=== PATIENT | female | born 1940 | race Caucasian/White ===

== ENCOUNTER → 2016-05-22 | Outpatient (CLI) | payer MEDICARE, OTHER ==
[~2016-05-22] MED LIST: ACETAMINOPHEN PO; AMBIEN PO; AMBIEN10 MG PO; AMLODIPINE BESYL5 MG PO; ASPIRIN PO; ASPIRIN81 M2 PO; ATIVAN PO; BALANCED B-1001 TA1 PO; BENAZEPRIL HCL10 MG PO; CALCIUM 600+D T1 TA1 PO; CENTRUM SILVER PO; CHROMIUM PO; COQ PO; COQ-10100 MG PO; COQ-10200 MG; FISH OIL 1,0001 CA2 PO; FISH OIL 1,0001 CAP PO; FISH OIL 1,2001 EAC2 PO; FOLIC ACID PO; FOLIC ACID800 MCG PO; GLUCOSAMINE-CH1 EAC4 PO; GLUCOSAMINE/CHONDROI PO; HAIR, SKIN & N1 EAC1 PO; HCTZ PO; HYDROCHLOROTHIA25 MG PO; IBUPROFEN800 MG PO; LOPRESSOR PO; LORAZEPAM1 MG PO; LOTREL 5/10 MG1 CAP PO; MAALOX SUSPENSI30 ML PO; MAGNESIUM400 M1 PO; METOPROLOL TART25 MG PO; MILK THISTLE200 M1 PO; MILK THISTLE500 MG PO; MSM1000 M1 PO; MULTIVITAMIN1 UDCAP PO; NAPROXEN PO; NEXIUM PO; NITROGYLCERIN SUBLINGUAL; OCUVITE TABLET1 TA1 PO; OMEPRAZOLE40 M1 PO; OYSTER CALCIUM500 MG PO; PLAVIX PO; POTASSIUM GLUCO PO; PROBIOTIC1 EAC2 PO; VIT E PO; VITAMIN C W/R1000 M1 PO; VITAMIN D PO; ZOCOR PO; ZOCOR20 MG PO; ZOLOFT PO; ZOLOFT50 MG PO
--- NOTE | ~2016-05-22 | MY11 ---
[facility] A Service of [facility] & [facility] RADIOLOGY TEXT RESULTS PATIENT: SLY YARBROUGH LOCATION: [facility] : 42 UNIT #: [id number] AGE: [address]: Adelina Merino MD SEX: F ORDER DR: [id number] [facility] [address] [facility]. [place], [place] [address] [id number] O MR#: [id number] Acc #: [id number] NAME: SLY YARBROUGH : 1940 SEX: F STUDY DATE/TIME: 05/22/2016 13:48 UNIT: [facility] ROOM: STUDY DESCRIPTION: MY Mammogram Screening Dig Aman Attending Physician: Adelina Merino M.D. Ordering Physician: Adelina Merino M.D. Primary Care Physician: Adelina Merino M.D. MEDICAL IMAGING REPORT This report is preliminary unless electronic signature is present EXAM Digital screening mammogram, 05/22/2016 HISTORY 75-year-old woman no risk elevation. Annual screening. COMPARISON 09/26/2010, 10/30/2011 FINDINGS Digital imaging of each breast was completed utilizing screening protocol. Review includes FDA-approved CAD device. Breast parenchyma is extremely dense and somewhat heterogeneous with generalized nodular pattern in each breast. There are scattered calcifications with benign characteristics bilaterally. Subareolar duct prominence is noted in each breast. I see no suspicious microcalcifications. There is a subtle focal parenchymal opacity with suggested stellate distortion noted in the upper right breast middle third. This is visualized on the MLO view only and probably represents summation artifact. It will require additional imaging however to include a true lateral projection, exaggerated craniocaudal view and spot compression views. Targeted ultrasound will be performed if indicated at the time. IMPRESSION Incomplete mammographic evaluation. Additional right breast imaging is recommended. See full report with recommendations. Patients over the age of 40 are entered into a reminder system with target due date for the next mammogram. A result letter will also be sent to the patient. BIRADS 0 Incomplete: Need Additional Imaging Evaluation and/or Prior Mammograms for Comparison [facility] A Service of [facility] RADIOLOGY TEXT RESULTS PATIENT: SLY YARBROUGH LOCATION: [facility] : 42 UNIT #: [id number] AGE: [address]: Aedlina Merino MD SEX: F ORDER DR: Dictated by... Norberto Potter M.D. THIS IS AN ELECTRONICALLY VERIFIED REPORT Norberto Potter M.D. at 05/22/2016 3:40 PM Eva TD: 05/22/2016 15:37 JOB #: [id number] MEDICAL IMAGING REPORT Page 1 of 1 COPY
== END | disposition home or self-care (01) ==
LOC: CWCC 13:22
DX: Z12.31 Encounter for screening mammogram for malignant neoplasm of breast (principal); R92.8 Other abnormal and inconclusive findings on diagnostic imaging of breast
CPT/HCPCS: G0202

== ENCOUNTER → 2016-06-06 | Outpatient (CLI) | payer MEDICARE, OTHER ==
--- NOTE | ~2016-06-06 | US24 ---
[facility] A Service of [facility] & [facility] RADIOLOGY TEXT RESULTS PATIENT: SLY YARBROUGH LOCATION: [facility] : 42 UNIT #: [id number] AGE: [address]: Adelina Merino MD SEX: F ORDER DR: [id number] [facility] [address] [facility]. [place], [place] [address] [id number] O MR#: [id number] Acc #: [id number] NAME: SLY YARBROUGH : 1940 SEX: F STUDY DATE/TIME: 06/06/2016 14:41 UNIT: [facility] ROOM: STUDY DESCRIPTION: US Breast Unilateral Attending Physician: Adelina Merino M.D. Referring Physician: Adelina Merino M.D. Ordering Physician: Adelina Merino M.D. Primary Care Physician: Adelina Merino M.D. MEDICAL IMAGING REPORT This report is preliminary unless electronic signature is present EXAM Right breast ultrasound. INDICATION Abnormal screening mammogram. FINDINGS Please refer to the diagnostic mammogram report for details on the ultrasound. IMPRESSION Benign right breast ultrasound. Patients over the age of 40 are entered into a reminder system with target due date for the next mammogram. A result letter will also be sent to the patient. BIRADS: 2 Benign finding. Dictated by... Jasper Barcenas M.D. THIS IS AN ELECTRONICALLY VERIFIED REPORT Jasper Barcenas M.D. at 06/06/2016 4:14 PM JESUS/benjamín TD: 06/06/2016 16:10 JOB #: [id number] MEDICAL IMAGING REPORT Page 1 of 1 COPY
--- NOTE | ~2016-06-06 | MY8 ---
[facility] A Service of [facility] RADIOLOGY TEXT RESULTS PATIENT: SLY YARBROUGH LOCATION: [facility] : 42 UNIT #: [id number] AGE: [address]: Adelina Merino MD SEX: F ORDER DR: [id number] [place] [id number] [facility]. [place], [place] [address] [id number] O MR#: [id number] Acc #: [id number] NAME: SLY YARBROUGH : 1940 SEX: F STUDY DATE/TIME: 06/06/2016 14:18 UNIT: [facility] ROOM: STUDY DESCRIPTION: MY Mammogram Dx Dig Rt Attending Physician: Adelina Merino M.D. Referring Physician: Adelina Merino M.D. Ordering Physician: Adelina Merino M.D. Primary Care Physician: Adelina Merino M.D. MEDICAL IMAGING REPORT This report is preliminary unless electronic signature is present EXAM 1. Right digital diagnostic mammogram with CAD 2. Diagnostic right breast ultrasound, 06/06/2016. HISTORY 75-year-old asymptomatic female returns due to abnormal screening mammogram. FINDINGS RIGHT BREAST MAMMOGRAM: Spot compression MLO, ML and exaggerated CC views of the right breast were obtained. Background breast parenchyma consists of heterogenously dense tissue. The focal asymmetry in the right MLO projection resolves with spot compression images. There are some benign calcifications in both breasts. COMPARISON STUDIES Exam is compared to prior mammograms dated 05/22/2016, 10/30/2011, and 09/26/2010. Given the abnormality on the screening mammogram, diagnostic right breast ultrasound was performed. RIGHT BREAST ULTRASOUND: Charles-scale and color Doppler ultrasound of the right breast was performed with attention to the superior 1 half of the right breast. There is no suspicious mass or findings identified. No evidence of malignancy. There is a small 0.5 cm morphologically normal lymph node at 10 o'clock position, approximately 7 cm from nipple. IMPRESSION Benign right breast mammogram and right breast ultrasound. BIRADS II. [facility] A Service of [facility] & [facility] RADIOLOGY TEXT RESULTS PATIENT: SLY YARBROUGH LOCATION: [facility] #: [id number] : 42 UNIT #: [id number] AGE: [address]: Adelina Merino MD SEX: F ORDER DR: RECOMMENDATIONS: Annual screening mammogram. Results of this study as well as recommendations were discussed directly with the patient at the time of her visit to the department of Radiology. Patients over the age of 40 are entered into a reminder system with target due date for the next mammogram. A result letter will also be sent to the patient. BIRADS: 2 - Benign finding Dictated by... Jasper Barcenas M.D. THIS IS AN ELECTRONICALLY VERIFIED REPORT Jasper Barcenas M.D. at 06/06/2016 4:14 PM JESUS/shara TD: 06/06/2016 16:05 JOB #: [id number] MEDICAL IMAGING REPORT Page 1 of 1 COPY
== END | disposition home or self-care (01) ==
LOC: CMAM 13:41
DX: R92.8 Other abnormal and inconclusive findings on diagnostic imaging of breast (principal)
CPT/HCPCS: 76641; G0206

== ENCOUNTER 2016-06-22 22:42 | Inpatient (IN) | payer MEDICARE, OTHER ==
--- NOTE | ~2016-06-22 | OR ---
Unit #: [id number] #: [id number] Patient: SLY YARBROUGH [id number] [address] [place], [place] [address] [id number] Richar MR#: [id number] NAME: SLY YARBROUGH. ROOM: [facility] Date of Procedure: 06/25/2016 Admission Date: 06/23/2016 Surgeon: Joseph Wilburn III, M.D. : 1940 Attending Physician: Aura High M.D. Primary Care Physician: Adelina Merino M.D. OPERATIVE REPORT PREOPERATIVE DIAGNOSIS Bowel obstruction. POSTOPERATIVE DIAGNOSIS Bowel obstruction. PROCEDURES PERFORMED Exploratory laparotomy with lysis of adhesions. BAGGAGE AGENT SUPERVISOR Naseem Parr M.D. SPECIMENS None. COMPLICATIONS None apparent. ESTIMATED BLOOD LOSS Minimal. INDICATIONS FOR PROCEDURE This is a 75-year-old lady, who presented with a bowel obstruction. She had imaging that showed there was a level of obstruction in the right colon. The initial thought was she may have a cecal volvulus. DESCRIPTION OF PROCEDURE After consent was obtained, the patient was brought to the operating room and placed in the supine position. General anesthetic was administered. Her abdomen was prepped and draped in standard surgical fashion. I made a midline laparotomy and entered into the peritoneal cavity without any difficulty. She was noted to have a massively dilated cecum. First, I thought this was a cecal volvulus as the radiologist did; however, I noted that there was an adhesive band consistent with the lap band that crossed over the distal ilium and then pinched off the right colon. After I divided this, there was immediate release of the obstruction. I observed the cecum initially because it did have some discoloration; however, it was completely viable and pinked up at the end of the case. I then tacked the mesenteric edge to the lateral right gutter with interrupted 2-0 silk suture. I had good hemostasis. I elected not to do a bowel resection because of no evidence of any ischemia at the time of closing. I then reapproximated the midline fascia with interrupted #1 Vicryl sutures and Unit #: [id number] #: [id number] Patient: SLY YARBROUGH the skin edges were reapproximated with a stapling device. She tolerated the procedure without any problems and returned to recovery room in stable condition. Dictated by... Joseph Wilburn III, M.D. VCL/delores TD: 06/26/2016 07:42 JOB #: [id number] OPERATIVE REPORT Page 1 of 1 X Joseph Wilburn III, MD X PROCEDURE OPERATIVE NOTE
--- NOTE | ~2016-06-22 | CO ---
Unit #: [id number] #: [id number] Patient: SLY YARBROUGH [id number] [address] [place], [place] [address] [id number] I MR#: [id number] NAME: SLY YARBROUGH ROOM: [facility] Age: 75 Sex: F Admission Date: 06/23/2016 : 1940 Attending Physician: Aura High M.D. Primary Care Physician: Adelina Merino M.D. Consultation Date: 06/24/2016 CONSULTATION REPORT REASON FOR CONSULTATION 1. Abdominal distention. 2. Nausea and vomiting. 3. Possible enterocolitis. CONSULTING PHYSICIAN [facility] physicians. HISTORY OF PRESENT ILLNESS Thank you very much for asking us to see Ms. Yarbrough. She is a 75-year-old white female, whose past surgical history is remarkable for STACY-BSO, tubal ligation, and an open appendectomy in the past. She developed nausea, vomiting, and abdominal distention 3 to 4 days ago. Her last bowel movement was 3 to 4 days ago which is unusual for the patient. She has had no GI bleeding. No or pulmonary symptoms. Her last colonoscopy was 5 years ago and was normal per her history. She states she came to the emergency room for evaluation for her abdominal distention, nausea, and vomiting. The CT scan revealed nonspecific bowel gas pattern fluid in her stomach with fluid and gas in the right colon, possible enterocolitis. Abdominal x-ray reveal the distended cecum. The patient presents at this time for further evaluation and treatment. PAST MEDICAL HISTORY Hypertension, hyperlipidemia, COPD, anxiety disorder. PAST SURGICAL HISTORY Tonsillectomy, hysterectomy, appendectomy. SOCIAL HISTORY Positive for regular alcohol use. Positive tobacco use. FAMILY HISTORY Noncontributory. ALLERGIES No known medical allergies. HOME MEDICATIONS Please see med rec sheet. CURRENT MEDICATIONS Please see med rec sheet. IMMUNIZATION STATUS Unit #: [id number] #: [id number] Patient: SLY YARBROUGH Unknown. PHYSICAL EXAMINATION GENERAL: Well-developed, well-nourished, white female, in no apparent distress. VITAL SIGN: Afebrile. Vital signs stable. NECK: Supple. No thyromegaly or adenopathy. BACK: No CVA or spinous tenderness. ABDOMEN: Distended but soft. No rebound, peritoneal signs, or masses. No obvious hernias. EXTREMITIES: No calf tenderness. No erythema. RECTAL: Reveals good sphincter tone. Small amount of stool, but no flatus in the rectal vault. DIAGNOSTIC STUDIES LABORATORY RESULTS: Reveal the patient to have a normal CMP; white count of 12,000, hemoglobin 11, hematocrit 35. IMPRESSION A 72-year-old white female with abdominal distention and air-fluid level in the ascending colon and no bowel movement for several days. We feel the patient may have some degree of obstruction and as a result, we feel she needs an NG tube for decompression. We will place this and we will check an abdominal x-ray series today. She may need a repeat CT scan of the abdomen and pelvis in the morning with oral and IV contrast with an oral being given per the NG tube versus a Gastrografin enema to rule out large bowel obstruction. All this has been fully explained to the patient and to her in detail. They understand completely and requests to proceed with the current treatment plan. Dictated by... Isamar Gay/delores TD: 06/25/2016 05:28 JOB #: [id number] [facility] CONSULTATION REPORT Page 1 of 1 X Ferdinand Singh MD X CONSULTATION REPORT
--- NOTE | ~2016-06-22 | DS ---
Unit #: [id number] #: [id number] Patient: SLY YARBROUGH [id number] [address] [place], [place] [address] [id number] I MR#: [id number] NAME: SLY YARBROUGH ROOM: [facility] Age: 75 Sex: F Admission Date: 06/23/2016 : 1940 Discharge Date: 06/30/2016 Attending Physician: Aura High M.D. Primary Care Physician: Adelina Merino M.D. DISCHARGE SUMMARY HISTORY AND HOSPITAL COURSE Ms. Yarbrough is a 75-year-old female who presented to the emergency room with nausea and vomiting, found to have a bowel obstruction. She was taken to the operating room by Dr. Wilburn. There, she was found to have a closed loop obstruction from what appeared to be Mayo's bands. These were resected and a cecopexy was performed and postoperatively she recovered bowel function and had an unremarkable postoperative course. Her vital signs are stable. She is tolerating a diet and having normal bowel movements. Her laboratories have normalized and her wound is healing without complication. She will be discharged home today in stable condition. She is instructed to take a diet as tolerated, to ambulate ad sen but do no lifting greater than 15 pounds or any strenuous activity. She can use a laxative if needed and she may shower but not submerge her wound under water in a tub. She is to call the office and follow up with Dr. Wilburn in one to two weeks. Prescription for [place] 5 mg tablets was left for pain control. She is to continue her home medications per the reconciliation sheet. The patient understood these instructions and will be discharged home in stable condition. Dictated by... Naseem Parr M.D. EMILY/nilay TD: 07/02/2016 07:00 JOB #: [id number] DISCHARGE SUMMARY Page 1 of 1 X Naseem Parr MD DISCHARGE SUMMARY
--- NOTE | ~2016-06-22 | CO ---
Unit #: [id number] #: [id number] Patient: SLY YARBROUGH [id number] [address] [place], [place] [address] [id number] I MR#: [id number] NAME: SLY YARBROUGH. ROOM: [facility] Age: 75 Sex: F Admission Date: 06/23/2016 : 1940 Attending Physician: Aura High M.D. Primary Care Physician: Adelina Merino M.D. Consultation Date: 06/23/2016 CONSULTATION REPORT REASON FOR ADMISSION Intractable abdominal pain, enterocolitis. HISTORY OF PRESENT ILLNESS The patient is a 75-year-old female, relatively healthy, who denies any previous issues with her GI tract. She states that she was in her usual state of health approximately one week prior to admission, when off and on she began developing some diffuse abdominal pain. It worsened over the past 48 to 72 hours. She has felt as though she may be having a similar attack to what she had when she developed acute appendicitis. She became concerned and presented to the emergency room. While she was evaluated in the emergency room she underwent a CT of the abdomen and pelvis which revealed findings consistent with enterocolitis and, thus, she is now being admitted for the same. PAST MEDICAL HISTORY 1. Hypertension. 2. Hyperlipidemia. 3. Chronic obstructive pulmonary disease. 4. Alcohol abuse. 5. Generalized anxiety disorder. 6. Hyperlipidemia. 7. Myocardial infarction in 2008. PAST SURGICAL HISTORY 1. Tonsillectomy. 2. Hysterectomy. 3. Appendectomy. SOCIAL HISTORY The patient drinks approximately 8-10 beers on a daily basis and has been doing so for the past several years. She has an approximate 75 to 100 ipik-smwo-svjylck history. She states that she quit approximately three years ago. No illicit drug use. She denies any other recreational drug use. FAMILY HISTORY Reviewed, negative and noncontributory in this advanced age individual. ALLERGIES No known drug allergies. HOME MEDICATIONS 1. Norvasc. Unit #: [id number] #: [id number] Patient: SLY YARBROUGH 2. Benazepril. 3. Omeprazole. 4. Hydrochlorothiazide. 5. Ativan. 6. Ambien 7. Zoloft. 8. Zocor. 9. Metoprolol tartrate. 10. Multivitamin. 11. Probiotic. 12. Folic acid. 13. Calcium. 14. Fish oil. 15. Glucosamine. 16. Milk Thistle. 17. Ocuvite tablets. 18. Aspirin. 19. Naproxen. REVIEW OF SYSTEMS Please see history of present illness. Twelve points otherwise negative except for those positives noted in history of present illness. PHYSICAL EXAMINATION GENERAL: The patient is a 75-year-old female lying comfortably, in no acute distress. VITALS: Temperature 97.5, pulse 90, respiratory rate 18, blood pressure 176/88 on admission. HEENT: Head exam atraumatic, normocephalic. Ears, tympanic membranes do not reveal any erythema or injection. NECK: Supple. LUNGS: Clear. HEART: S1 and S2 without murmur. ABDOMEN: There is diffuse right-sided tenderness. No rebound is noted. No guarding is noted. Mild distension is noted, but it is more tender to palpation in the right lower quadrant. EXTREMITIES: Lower extremities, no evidence of any lower extremity edema. No calf tenderness. NEUROLOGIC: The patient is alert and oriented times three. PSYCHIATRIC: The patient demonstrates normal affect and mood. DIAGNOSTIC STUDIES LABORATORY: Decreased potassium with a potassium level of 3.0. She did receive 40 mEq of potassium while in the emergency room. Her magnesium level was noted to be 1.6 as well. EMERGENCY ROOM COURSE The patient received normal saline, fentanyl as well as Zofran. ASSESSMENT 1. Intractable abdominal pain. 2. Enterocolitis. 3. Abnormal CT of the abdomen and pelvis seen with food products retained in the stomach. Questionable gastroparesis. 4. Cardiac/myocardial infarction history in 2008. 5. Alcohol abuse, dependence. 6. Hypertension. 7. Chronic obstructive pulmonary disease. Unit #: [id number] #: [id number] Patient: SLY YARBROUGH 8. Generalized anxiety disorder. PLAN Admission. Telemetry floor. IV antibiotics. Reglan. Clear diet for now. Will see how she progresses over the initial 24 hours of her hospital stay. We will replete electrolytes as appropriate. If she does well, her ad pain subsides, she is able to tolerate p.o., her antibiotics may be converted to p.o. and subsequent timing for discharge after 48 hours. If she is unable to tolerate, develops intractable abdominal pain, consideration may be given to gastroenterology evaluation for possible colonoscopy and/or further workup. Plans have been reviewed with the patient in detail. She is full code. She expressed understanding and agreement of the plan as stated above. Dictated by... Isamar Wallace/topher TD: 06/23/2016 10:21 JOB #: [id number] CONSULTATION REPORT Page 1 of 1 X Aura High MD X CONSULTATION REPORT
--- NOTE | ~2016-06-22 | CR7 ---
[facility] A Service of [facility] & [facility] RADIOLOGY TEXT RESULTS PATIENT: SLY YARBROUGH LOCATION: [facility] [address] : 44 UNIT #: [id number] AGE: [address]: Aura High MD SEX: F ORDER DR: [id number] [facility] [address] [facility]. [place], [place] [address] [id number] I MR#: [id number] Acc #: [id number] NAME: SLY YARBROUGH : 1940 SEX: F STUDY DATE/TIME: 06/24/2016 18:49 UNIT: [facility] ROOM: [facility] STUDY DESCRIPTION: CR Abdomen Single AP View Attending Physician: Aura High M.D. Ordering Physician: Aura High M.D. Primary Care Physician: Adelina Merino M.D. MEDICAL IMAGING REPORT This report is preliminary unless electronic signature is present EXAM Portable abdomen HISTORY NG tube placement. FINDINGS Portable radiograph of the upper abdomen, including the chest demonstrates NG tube tip is in the proximal stomach at the level of the gastric fundus with the side-hole at the level of the EG junction. Tube extends 6 cm beyond the EG junction and could be advanced an additional 10 cm for improved positioning in the stomach. Stable dilatation of a segment of colon in the midline upper abdomen, very similar to 06/22/2016, which could reflect mild ileus. Exam does not include the lower abdomen or pelvis. Dictated by... Qasim Wasserman M.D. THIS IS AN ELECTRONICALLY VERIFIED REPORT Qasim Wasserman M.D. at 06/25/2016 5:14 PM ALVA/emery TD: 06/25/2016 00:59 JOB #: [id number] MEDICAL IMAGING REPORT Page 1 of 1 COPY
--- NOTE | ~2016-06-22 | EKG ---
PATIENT: SLY YARBROUGH UNIT #: [id number] Ventricular Rate: 89 BPM Atrial Rate: 89 BPM P-R Interval: 216 ms QRS Duration: 86 ms Q-T Interval: 378 ms QTC Calculation(Bezet): 459 ms P [place]: 62 degrees Calculated R [place]: 20 degrees Calculated T [place]: 58 degrees Diagnosis Line: Sinus rhythm with 1st degree A-V block Diagnosis Line: Otherwise normal ECG Diagnosis Line: No previous ECGs available Diagnosis Line: Confirmed by KIERA SHEEHAN MD ([id number]) on 06/23/2016 Diagnosis Line: 4:10:30 PM INTERPRETING MD: AGUILA GARCIA
--- NOTE | ~2016-06-22 | CR7 ---
[facility] A Service of [facility] & [facility] RADIOLOGY TEXT RESULTS PATIENT: SLY YARBROUGH LOCATION: [facility] : 44 UNIT #: [id number] AGE: [address]: Gregorio Lynn MD SEX: F ORDER DR: [id number] [facility] [address] [facility] [place], [place] [address] [id number] I MR#: [id number] Acc #: [id number] NAME: SLY YARBROUGH : 1940 SEX: F STUDY DATE/TIME: 06/22/2016 23:59 UNIT: [facility] ROOM: [id number] STUDY DESCRIPTION: CR Abdomen Single AP View Attending Physician: Gregorio Lynn M.D. Ordering Physician: Chucky Del Toro M.D. Primary Care Physician: Adelina Merino M.D. MEDICAL IMAGING REPORT This report is preliminary unless electronic signature is present EXAM Portable abdomen HISTORY Abdominal pain times 48 hours. FINDINGS Single limited view of the abdomen demonstrates air distended bowel within the mid abdomen right lower quadrant. This could represent a mildly distended cecum or sigmoid colon. A small amount of gas is seen in the distal sigmoid. Scoliosis and degenerative changes in the lumbar spine. Only a portion of the upper abdomen is visualized and therefore difficult to assess for organomegaly. Overall this is a limited study but no definite pathology seen. There is a moderately distended structure which is felt to represent either mobile cecum or sigmoid colon. Findings are not strongly suggestive of either a sigmoid or cecal volvulus. Recommend a clinical followup. Dictated by... Yoel Cartwright M.D. THIS IS AN ELECTRONICALLY VERIFIED REPORT Yoel Cartwright M.D. at 06/23/2016 5:56 AM AMINA/romana TD: 06/23/2016 02:34 JOB #: [id number] MEDICAL IMAGING REPORT Page 1 of 1 COPY
--- NOTE | ~2016-06-22 | CR2 ---
[facility] A Service of [facility] & [facility] RADIOLOGY TEXT RESULTS PATIENT: SLY YARBROUGH LOCATION: C5B 550-01 : 42 UNIT #: [id number] AGE: [address]: Aura High MD SEX: F ORDER DR: [id number] [facility] [address] [place], [place] [address] [id number] I MR#: [id number] Acc #: [id number] NAME: SLY YARBROUGH. : 1940 SEX: F STUDY DATE/TIME: 06/24/2016 20:40 UNIT: C5B ROOM: [facility] STUDY DESCRIPTION: CR Abdomen Acute Series Attending Physician: Aura High M.D. Ordering Physician: Aura iHgh M.D. Primary Care Physician: Adelina Merino M.D. MEDICAL IMAGING REPORT This report is preliminary unless electronic signature is present EXAM Acute abdomen series HISTORY Abdomen pain for 1 day. FINDINGS Flat and upright views of the abdomen and upright view of the chest demonstrate stable moderate gaseous distension of a segment of colon in the central and right abdomen, unchanged compared to CT and x-ray studies 06/22/2016. There is new borderline to mild gaseous distension of small bowel in the mid and left abdomen, which could be small bowel ileus. No free air. NG tube tip in the gastric fundus with the side-hole at the level of the EG junction, stable compared to earlier today. The tube could be advanced at 10 cm for improved positioning in the stomach. There is mild linear atelectasis or scarring in both lung bases but no focal airspace infiltrates. IMPRESSION 1. Stable gaseous distension of a portion of colon in the mid and right abdomen compared to studies dating back to 06/22/2016, which could be due to localized ileus or partial colonic obstruction. There is also new mild gaseous distension of small bowel in the mid and left upper abdomen which could be due to localized small bowel ileus. No free air. 2. No active disease in the lungs. 3. NG tube tip in the gastric fundus with the side-hole at the level of the EG junction could be advanced 10 cm for improved positioning in the stomach. Dictated by... Qasim Wasserman M.D. [facility] A Service of [facility] RADIOLOGY TEXT RESULTS PATIENT: SLY YARBROUGH LOCATION: C5B 550-01 : 42 UNIT #: [id number] AGE: [address]: Aura High MD SEX: F ORDER DR: THIS IS AN ELECTRONICALLY VERIFIED REPORT Qasim Wasserman M.D. at 06/25/2016 5:15 PM DFL/romana TD: 06/25/2016 02:42 JOB #: [id number] MEDICAL IMAGING REPORT Page 1 of 1 COPY
--- NOTE | ~2016-06-22 | CT2 ---
[facility] A Service of [facility] & [facility] RADIOLOGY TEXT RESULTS PATIENT: SLY YARBROUGH LOCATION: C5B 550-01 : 42 UNIT #: [id number] AGE: [address]: Aura High MD SEX: F ORDER DR: [id number] [facility] [address] [place], [place] [address] [id number] I MR#: [id number] Acc #: [id number] NAME: SLY YARBROUGH : 1940 SEX: F STUDY DATE/TIME: 06/25/2016 11:43 UNIT: C5B ROOM: [facility] STUDY DESCRIPTION: CT Abd and Pelv W Cont Attending Physician: Aura High M.D. Ordering Physician: Ferdinand Singh M.D. Primary Care Physician: Adelina Merino M.D. MEDICAL IMAGING REPORT This report is preliminary unless electronic signature is present EXAM CT abdomen and pelvis, with contrast. HISTORY Enterocolitis. Diffuse abdominal pain for 2 weeks. COMPARISON 06/22/2016 TECHNIQUE Patient was given 100 mL of Isovue-370, and axial 5-mm images were obtained through the abdomen and pelvis. This CT exam was performed with one or more of the following radiation dose reduction techniques: automatic exposure control, adjustment of mA and/or kV according to patient size, and iterative reconstruction. FINDINGS Findings of minimal patchy atelectasis or infiltrate in the lower lobes. There is a small amount of fluid around the liver. The liver, gallbladder, spleen, pancreas, adrenal glands, and kidneys are normal. The aorta is normal in size, and there is no adenopathy. The SMA and SMV are patent. The celiac artery is patent. The colon is completely collapsed, except for the cecum, which is located in the right upper abdomen lateral to the rest of the right colon. The cecum is up to 8.3 cm in transverse dimension. There is no wall thickening. There is a sudden transition from the dilated cecum down to nondilated right colon, and the rest of the colon is completely collapsed. The small bowel is markedly distended all the way back to the jejunum. The distention has developed since 06/22/2016. IMPRESSION 1. Patient has a high-grade mechanical bowel obstruction involving the mid right colon. I believe this is due to a short-segment cecal STS. [facility] A Service of [facility] & [facility] RADIOLOGY TEXT RESULTS PATIENT: SLY YARBROUGH LOCATION: [facility] 550-01 : 42 UNIT #: [id number] AGE: [address]: Aura High MD SEX: F ORDER DR: volvulus. There is no evidence of wall thickening or ischemic change. The SMA, SMV, and celiac arteries are all patent. As compared with 06/22/2016, there has been marked increase in small bowel distention. The colon beyond the point of obstruction is completely collapsed. No mass is visible, but within a very short segment, there is change from a dilated cecum, measuring up to 8 cm in diameter, with a collapsed right colon. The hepatic flexure of the colon is located medial to the dilated cecum. 2. I have already discussed the findings with Dr. Singh. STAT * RESULT Dictated by... Rajesh Cardona M.D. THIS IS AN ELECTRONICALLY VERIFIED REPORT Rajesh Cardona M.D. at 06/25/2016 3:33 PM SHANTEL/bryan TD: 06/25/2016 12:57 JOB #: [id number] MEDICAL IMAGING REPORT Page 1 of 1 COPY
[~2016-06-22 22:42] MED LIST changes: -COQ-10200 MG; -FISH OIL 1,2001 EAC2 PO; -HAIR, SKIN & N1 EAC1 PO; -MAGNESIUM400 M1 PO; -MILK THISTLE200 M1 PO; -VITAMIN C W/R1000 M1 PO
[2016-06-22 23:52] LABS: BASOPHIL% 0.3 % (0-2.5); EOSINOPHIL% 0.2 % (0.0-7.0); HEMATOCRIT 35.7 % (35.0-45.0); HEMOGLOBIN 11.5 gm/dL (12.0-16.0); LYMPHOCYTE# 1.5 X10e3 (1.0-3.5); LYMPHOCYTE% 16.2 % (17.0-45.0); MEAN CELL VOLUME 80.6 FL (83-96); MEAN CORPUSCULAR HGB CONC 32.2 g/dL (30-36); MEAN PLATELET VOLUME 8.6 FL (6.5-11.5); MONOCYTE# 0.7 X10e3 (0-1.0); MONOCYTE% 8.1 % (3.0-12.0); NEUTROPHIL# 6.8 X10e3 (1.5-7.1); NEUTROPHIL% 75.2 % (40-75); PLATELET COUNT 295 X10e3 (140-420); RED BLOOD COUNT 4.43 X10e (3.90-5.30); RED CELL DISTRIBUTION WIDTH 16.4 % (11.0-15.5); WHITE BLOOD COUNT 9.1 X10e3 (4.0-10.5)
[2016-06-22 23:53] LABS: DIFF IND NO
[2016-06-23 00:19] LABS: ALBUMIN SERUM 3.9 g/dL (3.5-5.0); BILIRUBIN, DIRECT 0.1 mg/dL (0.0-0.2); BILIRUBIN,INDIRECT 0.5 mg/dL (0.0-0.9); BILIRUBIN,TOTAL 0.6 mg/dL (0.2-2.0); BUN/CREATININE RATIO 7.5; CALCIUM SERUM 8.8 mg/dL (8.4-10.2); CREATININE SERUM 0.8 mg/dL (0.6-1.4); GLOM FILT RATE Estimated 73.2 mL/min (>60); PROTEIN TOTAL SERUM 7.3 g/dL (6.0-8.3)
[2016-06-23 07:17] LABS: URINE APPEARANCE CLEAR; URINE BILIRUBIN NEG (NEG); URINE BLOOD NEG (NEG); URINE COLOR YELLOW; URINE GLUCOSE NEG (NEG); URINE KETONE NEG (NEG); URINE LEUKOCYTE ESTERASE TRACE (NEG); URINE NITRATE NEG (NEG); URINE PH 6.5 (5-8); URINE PROTEIN NEG (NEG); URINE SPECIFIC GRAVITY 1.007 (1.003-1.035); URINE UROBILINOGEN 0.2 MG/DL (NEG)
[2016-06-23 07:19] LABS: URBCS1 AUWI 0-2 /[HPF] (0-2); URINE BACTERIA AUWI NEG (NEGATIVE); URINE SQUAMOUS EPITHELIAL CELL NONE SEEN /[HPF]; UWBCS1 AUWI 0-2 (0-5)
[2016-06-23 07:29] LABS: CULTURE INDICATED? NO
[2016-06-23 07:42] LABS: URINE SOURCE CLEAN CATCH
[2016-06-23 11:25] LABS: BUN/CREATININE RATIO 8.57; CALCIUM SERUM 8.6 mg/dL (8.4-10.2); CREATININE SERUM 0.7 mg/dL (0.6-1.4); POTASSIUM 3.7 mmol/L (3.5-5.1)
[2016-06-23] MEDS ORDERED: VITAMIN C W/R1000 M1 PO (12:42)
[2016-06-23] MEDS ORDERED: MAGNESIUM400 M1 PO (12:43)
[2016-06-23] MEDS ORDERED: HAIR, SKIN & N1 EAC1 PO (12:44)
[2016-06-23] MEDS ORDERED: FISH OIL 1,2001 EAC2 PO (12:45)
[2016-06-23] MEDS ORDERED: MILK THISTLE200 M1 PO (12:45)
[2016-06-23] MEDS ORDERED: MSM1000 M1 PO (12:46)
[2016-06-23] MEDS ORDERED: COQ-10200 MG (12:46)
[2016-06-24 06:08] LABS: HEMATOCRIT 35.3 % (35.0-45.0); HEMOGLOBIN 11.1 gm/dL (12.0-16.0); MEAN CELL VOLUME 81.7 FL (83-96); MEAN CORPUSCULAR HEMOGLOBIN 25.7 PG (28-34); MEAN CORPUSCULAR HGB CONC 31.5 g/dL (30-36); MEAN PLATELET VOLUME 8.3 FL (6.5-11.5); RED BLOOD COUNT 4.32 X10e (3.90-5.30); RED CELL DISTRIBUTION WIDTH 16.7 % (11.0-15.5); WHITE BLOOD COUNT 12.1 X10e3 (4.0-10.5)
[2016-06-24 06:55] LABS: ALBUMIN SERUM 3.7 g/dL (3.5-5.0); BILIRUBIN,TOTAL 0.4 mg/dL (0.2-2.0); CALCIUM SERUM 8.9 mg/dL (8.4-10.2); CREATININE SERUM 0.6 mg/dL (0.6-1.4); GLOM FILT RATE Estimated 90.4 mL/min (>60); MAGNESIUM 1.5 mg/dL (1.6-3.0); POTASSIUM 3.8 mmol/L (3.5-5.1); PROTEIN TOTAL SERUM 7.1 g/dL (6.0-8.3)
[2016-06-25 05:38] LABS: HEMATOCRIT 31.6 % (35.0-45.0); HEMOGLOBIN 9.8 gm/dL (12.0-16.0); MEAN CELL VOLUME 82.3 FL (83-96); MEAN CORPUSCULAR HEMOGLOBIN 25.4 PG (28-34); MEAN CORPUSCULAR HGB CONC 30.9 g/dL (30-36); MEAN PLATELET VOLUME 9.2 FL (6.5-11.5); RED BLOOD COUNT 3.84 X10e (3.90-5.30); RED CELL DISTRIBUTION WIDTH 16.4 % (11.0-15.5); WHITE BLOOD COUNT 16.8 X10e3 (4.0-10.5)
[2016-06-25 06:02] LABS: BUN/CREATININE RATIO 16.25; CALCIUM SERUM 8.6 mg/dL (8.4-10.2); CREATININE SERUM 0.8 mg/dL (0.6-1.4); GLOM FILT RATE Estimated 73.2 mL/min (>60); MAGNESIUM 1.9 mg/dL (1.6-3.0); POTASSIUM 3.7 mmol/L (3.5-5.1)
[2016-06-26 05:44] LABS: HEMATOCRIT 28.2 % (35.0-45.0); HEMOGLOBIN 8.9 gm/dL (12.0-16.0); MEAN CELL VOLUME 82.3 FL (83-96); MEAN CORPUSCULAR HEMOGLOBIN 26.1 PG (28-34); MEAN CORPUSCULAR HGB CONC 31.7 g/dL (30-36); MEAN PLATELET VOLUME 8.5 FL (6.5-11.5); RED BLOOD COUNT 3.42 X10e (3.90-5.30); RED CELL DISTRIBUTION WIDTH 16.8 % (11.0-15.5); WHITE BLOOD COUNT 10.4 X10e3 (4.0-10.5)
[2016-06-26 06:53] LABS: BUN/CREATININE RATIO 16.25; CREATININE SERUM 0.8 mg/dL (0.6-1.4); GLOM FILT RATE Estimated 73.2 mL/min (>60); POTASSIUM 3.8 mmol/L (3.5-5.1)
[2016-06-27 06:12] LABS: HEMATOCRIT 27.7 % (35.0-45.0); HEMOGLOBIN 8.7 gm/dL (12.0-16.0); MEAN CELL VOLUME 82.3 FL (83-96); MEAN CORPUSCULAR HEMOGLOBIN 25.9 PG (28-34); MEAN CORPUSCULAR HGB CONC 31.5 g/dL (30-36); MEAN PLATELET VOLUME 8.5 FL (6.5-11.5); RED BLOOD COUNT 3.37 X10e (3.90-5.30); RED CELL DISTRIBUTION WIDTH 16.6 % (11.0-15.5); WHITE BLOOD COUNT 8.8 X10e3 (4.0-10.5)
[2016-06-27 06:59] LABS: CALCIUM SERUM 8.1 mg/dL (8.4-10.2); CREATININE SERUM 0.8 mg/dL (0.6-1.4); GLOM FILT RATE Estimated 73.2 mL/min (>60); POTASSIUM 3.3 mmol/L (3.5-5.1)
[2016-06-28 07:44] LABS: HEMATOCRIT 29.1 % (35.0-45.0); HEMOGLOBIN 9.3 gm/dL (12.0-16.0); MEAN CELL VOLUME 80.9 FL (83-96); MEAN CORPUSCULAR HEMOGLOBIN 25.9 PG (28-34); MEAN PLATELET VOLUME 8.2 FL (6.5-11.5); RED BLOOD COUNT 3.6 X10e (3.90-5.30); RED CELL DISTRIBUTION WIDTH 17.3 % (11.0-15.5); WHITE BLOOD COUNT 7.3 X10e3 (4.0-10.5)
[2016-06-28 08:24] LABS: CARBON DIOXIDE 29 mmol/L (22-31); CHLORIDE 94 mmol/L (100-111); CREATININE SERUM 0.6 mg/dL (0.6-1.4); GLOM FILT RATE Estimated 90.4 mL/min (>60); GLUCOSE FASTING 112 mg/dL (70-110); SODIUM 132 mmol/L (135-145)
[2016-06-28 08:25] LABS: BLOOD UREA NITROGEN <5 mg/dL (9-23); BUN/CREATININE RATIO 8.33
[2016-06-28 08:29] LABS: POTASSIUM 2.6 mmol/L (3.5-5.1)
[2016-06-29 06:56] LABS: HEMATOCRIT 26.9 % (35.0-45.0); HEMOGLOBIN 8.6 gm/dL (12.0-16.0); MEAN CELL VOLUME 80.5 FL (83-96); MEAN CORPUSCULAR HEMOGLOBIN 25.6 PG (28-34); MEAN CORPUSCULAR HGB CONC 31.8 g/dL (30-36); MEAN PLATELET VOLUME 8.4 FL (6.5-11.5); RED BLOOD COUNT 3.35 X10e (3.90-5.30); RED CELL DISTRIBUTION WIDTH 17.1 % (11.0-15.5); WHITE BLOOD COUNT 8.6 X10e3 (4.0-10.5)
[2016-06-29 07:46] LABS: CARBON DIOXIDE 29 mmol/L (22-31); CHLORIDE 98 mmol/L (100-111); CREATININE SERUM 0.7 mg/dL (0.6-1.4); GLUCOSE FASTING 89 mg/dL (70-110); MAGNESIUM 1.5 mg/dL (1.6-3.0); POTASSIUM 3.8 mmol/L (3.5-5.1); SODIUM 135 mmol/L (135-145)
[2016-06-29 07:48] LABS: BLOOD UREA NITROGEN <5 mg/dL (9-23); BUN/CREATININE RATIO 7.14
[2016-06-30 09:52] LABS: MAGNESIUM 1.6 mg/dL (1.6-3.0); POTASSIUM 3.3 mmol/L (3.5-5.1)
== END 2016-06-30 13:18 | disposition home health service (06) | DRG 330 ==
LOC: CED 22:42 → CEDOF 06-23 00:35 → C5B 06-23 00:35 → CED 06-23 00:42 → C5B 06-23 00:42 → CEDOF 06-23 00:42 → C5B 06-23 07:41
PROVIDERS: Emergency Medicine; Family Medicine; Internal Medicine; Physician Assistant Medical; Surgery
PROC: 0D9670Z Drainage of Stomach with Drainage Device, Via Natural or Artificial Opening (ICD-10-PCS; principal; 2016-06-24)
PROC: 0DQH0ZZ Repair Cecum, Open Approach (ICD-10-PCS; 2016-06-25)
PROC: 0DNH0ZZ Release Cecum, Open Approach (ICD-10-PCS; 2016-06-25)
DX: K95.09 Other complications of gastric band procedure (principal); K56.69 Other intestinal obstruction; J44.9 Chronic obstructive pulmonary disease, unspecified; K52.9 Noninfective gastroenteritis and colitis, unspecified; I10 Essential (primary) hypertension; E78.5 Hyperlipidemia, unspecified; F41.1 Generalized anxiety disorder; I25.2 Old myocardial infarction; Z90.710 Acquired absence of both cervix and uterus; Z79.82 Long term (current) use of aspirin; F10.20 Alcohol dependence, uncomplicated; Y73.8 Miscellaneous gastroenterology and urology devices associated with adverse incidents, not elsewhere classified
CPT/HCPCS: 36415; 74000; 74022; 74177; 80048; 80053; 80076; 81003; 82150; 82378; 83036; 83605; 83690; 83735; 84132; 84443; 85025; 85027; 87493; 93005; 94010; 96361; 96374; 96375; 97116; 97163; 97166; 97530; 97535; 99284; 99285; C9113; G0480; G8978-GP; G8979-GP; G8987-GO; G8988-GO; J0131; J0330; J0744; J1100; J1956; J2270; J2405; J2765; J3010; J3475; J3490; Q9967